=== PATIENT | female | born 1990 | race Caucasian/White ===

== ENCOUNTER 2016-10-28 01:56 | Emergency (ER) | payer BC ==
[~2016-10-28 01:56] MED LIST: BIRTH CONTROL PILL PO; CIPRO PO; FLAGYL PO; FLEXERIL PO; FLEXERIL10 MG PO; IBUPROFEN PO; NO MEDICATIONS; NORCO1 TAB 10/3 PO; PHENERGAN DM1 ML PO; PREDNISONE PO; TORADOL10 MG PO; VIBRAMYCIN100 M1 PO; VOLTAREN50 MG PO
[2016-10-28] MEDS ORDERED: CIPRO (02:04)
== END 2016-10-28 02:50 | disposition home or self-care (01) ==
LOC: SED 01:56
DX: S39.012A Strain of muscle, fascia and tendon of lower back, initial encounter (principal); Z87.440 Personal history of urinary (tract) infections; Z88.0 Allergy status to penicillin; Z88.1 Allergy status to other antibiotic agents; X58.XXXA Exposure to other specified factors, initial encounter; Y92.9 Unspecified place or not applicable
CPT/HCPCS: 99283